=== PATIENT | female | born 1955 | race African-American/Black ===

== ENCOUNTER 2018-11-19 11:31 | Inpatient (IN) | payer MEDICAID ==
[~2018-11-19] VITALS: Ht 162.6 cm; Wt 48.5 kg
[2018-11-19 12:26] LABS: CHLORIDE 100 mEq/L (98-107)
[2018-11-19 12:32] LABS: BASOPHILS % 0.9 % (0.0-2.0); EOSINOPHILS % 4.5 % (0.0-5.0); LYMPHOCYTES % 7.8 % (20.0-50.0); MEAN CORPUSCULAR HEMOGLOBIN 28.2 pg (28.0-32.0); MEAN CORPUSCULAR VOLUME 87.1 fL (81.0-99.0); MEAN PLATELET VOLUME 8.1 fl (7.4-10.4); MONOCYTES % 4.9 % (2.0-8.0); NEUTROPHILS % 81.9 % (40.0-76.0); PLATELET 185 x1000/uL (130-400); RED BLOOD CELL COUNT 2.35 mill/uL (4.2-5.4); RED CELL DISTRIBUTION WIDTH 16.6 % (11.6-14.6)
[2018-11-19 12:33] LABS: HEMATOCRIT. 20.5 % (36.0-48.0); HEMOGLOBIN. 6.6 g/dL (12.0-16.0)
[2018-11-19] MEDS ORDERED: HYDROCODONE/ACETAMINOPHEN 5/325MG TABLET PO ONE (16:00)
[2018-11-19] MEDS ORDERED: ONDANSETRON HCL 4MG/2ML INJ IV PRN (16:15)
[2018-11-19] MEDS ORDERED: ZOLPIDEM TARTRATE 5MG TABLET PO PRN (16:15)
[2018-11-19] MEDS ORDERED: IPRATROPIUM/ALBUTEROL 0.5-3(2.5)MG/3ML NEB HHN PRN (16:15)
[2018-11-19] MEDS ORDERED: DIPHENHYDRAMINE 25MG CAPSULE PO ONE (17:00)
[2018-11-19] MEDS ORDERED: TRAM50TA3 PO (23:05)
[2018-11-19] MEDS ORDERED: NIFE60TA64 PO (23:05)
[2018-11-19] MEDS ORDERED: FERR325T6 PO (23:05)
[2018-11-19] MEDS ORDERED: HYDR100T26 PO (23:05)
[2018-11-19] MEDS ORDERED: CARV12.545 PO (23:05)
[2018-11-19] MEDS ORDERED: DIPH25CA83 PO (23:05)
[2018-11-19] MEDS ORDERED: HYDR-4001 PO (23:05)
[2018-11-19] MEDS ORDERED: NITR0.4T SL (23:05)
[2018-11-19] MEDS ORDERED: ACET-2853 PO (23:05)
[2018-11-19] MEDS ORDERED: CLON0.2T PO (23:05)
[2018-11-19] MEDS ORDERED: NEPVIT PO (23:05)
[2018-11-19] MEDS ORDERED: ISOS40TA17 PO (23:05)
[2018-11-19] MEDS ORDERED: ATOR40TA70 PO (23:05)
[2018-11-19] MEDS ORDERED: PROT40 PO (23:05)
[2018-11-19] MEDS: DIPHENHYDRAMINE 50MG/ML VIAL IV PRN (23:18)
[2018-11-20] VITALS (7 sets, daily range): BP systolic 142–192; BP diastolic 79–114
[2018-11-20] MEDS ORDERED: ZOLPIDEM TARTRATE 5MG TABLET PO PRN (00:15)
[2018-11-20] MEDS: CLONIDINE 0.1MG TABLET PO PRN ×2 (04:25→09:21)
[2018-11-20] MEDS: ENOXAPARIN 30MG/0.3ML SYR SUBCUT SCH (09:00)
[2018-11-20] MEDS: DIPHENHYDRAMINE 50MG/ML VIAL IV PRN (09:38)
[2018-11-20 11:42] LABS: CHLORIDE 103 mEq/L (98-107)
[2018-11-20 11:46] LABS: BASOPHILS % 0.6 % (0.0-2.0); EOSINOPHILS % 4.7 % (0.0-5.0); HEMATOCRIT. 23.4 % (36.0-48.0); HEMOGLOBIN. 7.8 g/dL (12.0-16.0); LYMPHOCYTES % 9.5 % (20.0-50.0); MEAN CORPUSCULAR HEMOGLOBIN 29.2 pg (28.0-32.0); MEAN CORPUSCULAR VOLUME 87.7 fL (81.0-99.0); MEAN PLATELET VOLUME 7.4 fl (7.4-10.4); MONOCYTES % 4.7 % (2.0-8.0); NEUTROPHILS % 80.5 % (40.0-76.0); PLATELET 178 x1000/uL (130-400); RED BLOOD CELL COUNT 2.67 mill/uL (4.2-5.4); RED CELL DISTRIBUTION WIDTH 15.9 % (11.6-14.6)
[2018-11-20 11:48] LABS: PHOSPHORUS 4.3 mg/dL (2.5-4.9)
[2018-11-20] MEDS: LOSARTAN POTASSIUM 100 MG TABLET PO SCH (14:18)
[2018-11-20] MEDS: NIFEDIPINE XL 60MG TAB PO SCH (20:51)
[2018-11-21] VITALS (8 sets, daily range): BP systolic 129–179; BP diastolic 72–103
[2018-11-21] MEDS: DIPHENHYDRAMINE 50MG/ML VIAL IV PRN ×3 (00:11→20:24)
[2018-11-21] MEDS: HYDROCODONE/ACETAMINOPHEN 5/325MG TABLET PO PRN ×3 (02:28→23:01)
[2018-11-21 05:59] LABS: BASOPHILS % 0.8 % (0.0-2.0); EOSINOPHILS % 5.7 % (0.0-5.0); HEMATOCRIT. 24.7 % (36.0-48.0); HEMOGLOBIN. 8.3 g/dL (12.0-16.0); LYMPHOCYTES % 11.4 % (20.0-50.0); MEAN CORPUSCULAR HEMOGLOBIN 28.9 pg (28.0-32.0); MEAN CORPUSCULAR VOLUME 86.5 fL (81.0-99.0); MEAN PLATELET VOLUME 7.3 fl (7.4-10.4); MONOCYTES % 4.8 % (2.0-8.0); NEUTROPHILS % 77.3 % (40.0-76.0); PLATELET 207 x1000/uL (130-400); RED BLOOD CELL COUNT 2.86 mill/uL (4.2-5.4); RED CELL DISTRIBUTION WIDTH 15.9 % (11.6-14.6)
[2018-11-21 06:12] LABS: CHLORIDE 101 mEq/L (98-107)
[2018-11-21 06:19] LABS: PHOSPHORUS 4.9 mg/dL (2.5-4.9)
[2018-11-21] MEDS: LOSARTAN POTASSIUM 100 MG TABLET PO SCH (08:47)
[2018-11-21] MEDS: NIFEDIPINE XL 60MG TAB PO SCH ×2 (08:47→20:24)
[2018-11-21] MEDS: ENOXAPARIN 30MG/0.3ML SYR SUBCUT SCH (08:58)
[2018-11-22 00:20] VITALS: BP 151/101
[2018-11-22 00:25] VITALS: BP 153/96
[2018-11-22 04:00] VITALS: BP 187/108
[2018-11-22] MEDS: CLONIDINE 0.1MG TABLET PO PRN ×3 (05:47→23:18)
[2018-11-22] MEDS: HYDROCODONE/ACETAMINOPHEN 5/325MG TABLET PO PRN (05:47)
[2018-11-22 07:14] LABS: BASOPHILS % 0.5 % (0.0-2.0); EOSINOPHILS % 6.3 % (0.0-5.0); HEMATOCRIT. 25.5 % (36.0-48.0); HEMOGLOBIN. 8.5 g/dL (12.0-16.0); LYMPHOCYTES % 12.8 % (20.0-50.0); MEAN CORPUSCULAR HEMOGLOBIN 28.9 pg (28.0-32.0); MEAN CORPUSCULAR VOLUME 87.2 fL (81.0-99.0); MONOCYTES % 7.8 % (2.0-8.0); NEUTROPHILS % 72.6 % (40.0-76.0); PLATELET 199 x1000/uL (130-400); RED BLOOD CELL COUNT 2.93 mill/uL (4.2-5.4); RED CELL DISTRIBUTION WIDTH 16.2 % (11.6-14.6)
[2018-11-22 08:00] VITALS: BP 167/101
[2018-11-22 08:00] LABS: PHOSPHORUS 4.6 mg/dL (2.5-4.9)
[2018-11-22] MEDS: LOSARTAN POTASSIUM 100 MG TABLET PO SCH (08:24)
[2018-11-22] MEDS: NIFEDIPINE XL 60MG TAB PO SCH ×2 (08:24→21:10)
[2018-11-22] MEDS: ENOXAPARIN 30MG/0.3ML SYR SUBCUT SCH (08:24)
[2018-11-22] MEDS: DIPHENHYDRAMINE 50MG/ML VIAL IV PRN ×2 (09:44→21:11)
[2018-11-22 12:00] VITALS: BP 163/92
[2018-11-22 16:00] VITALS: BP 160/94
[2018-11-23 08:48] VITALS: BP 146/87
[2018-11-23] MEDS: NIFEDIPINE XL 60MG TAB PO SCH ×2 (09:06→22:46)
[2018-11-23] MEDS: LOSARTAN POTASSIUM 100 MG TABLET PO SCH (09:07)
[2018-11-23] MEDS: ENOXAPARIN 30MG/0.3ML SYR SUBCUT SCH (09:07)
[2018-11-23] MEDS: DIPHENHYDRAMINE 50MG/ML VIAL IV PRN ×2 (09:07→22:47)
[2018-11-23 12:29] VITALS: BP 161/92
[2018-11-23 16:16] VITALS: BP 163/92
[2018-11-24] MEDS: HYDROCODONE/ACETAMINOPHEN 5/325MG TABLET PO PRN ×2 (00:58→21:00)
[2018-11-24] MEDS: CLONIDINE 0.1MG TABLET PO PRN ×2 (00:59→06:52)
[2018-11-24 07:29] LABS: BASOPHILS % 0.8 % (0.0-2.0); EOSINOPHILS % 6.4 % (0.0-5.0); HEMATOCRIT. 25.5 % (36.0-48.0); HEMOGLOBIN. 8.4 g/dL (12.0-16.0); LYMPHOCYTES % 13.5 % (20.0-50.0); MEAN CORPUSCULAR HEMOGLOBIN 28.7 pg (28.0-32.0); MEAN PLATELET VOLUME 7.3 fl (7.4-10.4); MONOCYTES % 7.9 % (2.0-8.0); NEUTROPHILS % 71.4 % (40.0-76.0); PLATELET 169 x1000/uL (130-400); RED BLOOD CELL COUNT 2.93 mill/uL (4.2-5.4); RED CELL DISTRIBUTION WIDTH 16.3 % (11.6-14.6)
[2018-11-24] MEDS ORDERED: CARVEDILOL 6.25 MG TABLET PO SCH (10:30)
[2018-11-24] MEDS: LOSARTAN POTASSIUM 100 MG TABLET PO SCH (10:53)
[2018-11-24] MEDS: NIFEDIPINE XL 60MG TAB PO SCH ×2 (10:54→20:59)
[2018-11-24] MEDS: ENOXAPARIN 30MG/0.3ML SYR SUBCUT SCH (10:55)
[2018-11-24] MEDS: IRON SUCROSE COMPLEX 100 MG/5 ML ML IV SCH (17:24)
[2018-11-24] MEDS: DIPHENHYDRAMINE 50MG/ML VIAL IV PRN (17:24)
[2018-11-24] MEDS ORDERED: HEPARIN SODIUM 1,000 UNIT/1ML VIAL IV SCH (19:45)
[2018-11-24 20:00] VITALS: BP 151/100
[2018-11-24] MEDS: ATORVASTATIN CALCIUM 20MG TABLET PO SCH (20:59)
[2018-11-24] MEDS ORDERED: EPOETIN ALFA 10000UNITS/ML VIAL SUBCUT NR (21:00)
[2018-11-25] VITALS: BP 161/113
[2018-11-25] MEDS: CARVEDILOL 12.5MG TABLET PO SCH ×3 (00:36→21:52)
[2018-11-25] MEDS ORDERED: ZOLPIDEM TARTRATE 5MG TABLET PO PRN (01:00)
[2018-11-25 04:00] VITALS: BP 154/99
[2018-11-25 07:18] LABS: BASOPHILS % 1.1 % (0.0-2.0); EOSINOPHILS % 6.3 % (0.0-5.0); HEMATOCRIT. 28.6 % (36.0-48.0); HEMOGLOBIN. 9.5 g/dL (12.0-16.0); LYMPHOCYTES % 13.4 % (20.0-50.0); MEAN CORPUSCULAR HEMOGLOBIN 29.2 pg (28.0-32.0); MEAN CORPUSCULAR VOLUME 87.5 fL (81.0-99.0); MEAN PLATELET VOLUME 7.3 fl (7.4-10.4); MONOCYTES % 9.9 % (2.0-8.0); NEUTROPHILS % 69.3 % (40.0-76.0); PLATELET 162 x1000/uL (130-400); RED BLOOD CELL COUNT 3.27 mill/uL (4.2-5.4); RED CELL DISTRIBUTION WIDTH 16.3 % (11.6-14.6)
[2018-11-25] MEDS: LOSARTAN POTASSIUM 100 MG TABLET PO SCH (10:58)
[2018-11-25] MEDS: NIFEDIPINE XL 60MG TAB PO SCH ×2 (10:59→21:51)
[2018-11-25] MEDS: ENOXAPARIN 30MG/0.3ML SYR SUBCUT SCH (11:00)
[2018-11-25 12:00] VITALS: BP 137/86
[2018-11-25] MEDS: IRON SUCROSE COMPLEX 100 MG/5 ML ML IV SCH (13:47)
[2018-11-25] MEDS: CLONIDINE 0.2MG TABLET PO SCH ×2 (14:00→21:52)
[2018-11-25 16:09] VITALS: BP 164/92
[2018-11-25 20:41] VITALS: BP 163/102
[2018-11-25] MEDS: ATORVASTATIN CALCIUM 20MG TABLET PO SCH (21:51)
[2018-11-25] MEDS: DIPHENHYDRAMINE 50MG/ML VIAL IV PRN (21:51)
[2018-11-25] MEDS: ACETAMINOPHEN 325MG TABLET PO PRN (21:56)
[2018-11-26 00:55] VITALS: BP 137/93
[2018-11-26 04:00] VITALS: BP 134/87
[2018-11-26] MEDS: CLONIDINE 0.2MG TABLET PO SCH ×3 (06:00→22:00)
[2018-11-26 07:50] LABS: BASOPHILS % 0.8 % (0.0-2.0); EOSINOPHILS % 6.3 % (0.0-5.0); HEMATOCRIT. 28.1 % (36.0-48.0); HEMOGLOBIN. 9.4 g/dL (12.0-16.0); LYMPHOCYTES % 18.4 % (20.0-50.0); MEAN CORPUSCULAR HEMOGLOBIN 29.3 pg (28.0-32.0); MEAN CORPUSCULAR VOLUME 87.9 fL (81.0-99.0); MEAN PLATELET VOLUME 7.8 fl (7.4-10.4); MONOCYTES % 10.8 % (2.0-8.0); NEUTROPHILS % 63.7 % (40.0-76.0); PLATELET 155 x1000/uL (130-400); RED BLOOD CELL COUNT 3.19 mill/uL (4.2-5.4); RED CELL DISTRIBUTION WIDTH 16.2 % (11.6-14.6)
[2018-11-26 08:00] VITALS: BP 150/90
[2018-11-26] MEDS: IRON SUCROSE COMPLEX 100 MG/5 ML ML IV SCH (08:54)
[2018-11-26] MEDS: LOSARTAN POTASSIUM 100 MG TABLET PO SCH (08:55)
[2018-11-26] MEDS: NIFEDIPINE XL 60MG TAB PO SCH ×2 (08:55→21:00)
[2018-11-26] MEDS: CARVEDILOL 12.5MG TABLET PO SCH ×2 (08:57→21:00)
[2018-11-26] MEDS ORDERED: HYDRALAZINE HCL 25MG TABLET PO SCH (09:00)
[2018-11-26] MEDS ORDERED: BUPIVACAINE HCL/PF 0.5% (5MG/ML) 10ML ONE (10:01)
[2018-11-26] MEDS ORDERED: BACITRACIN 15GM TUBE TOP ONE (10:01)
[2018-11-26] MEDS ORDERED: HEPARIN SODIUM 1,000 UNIT/1ML VIAL IV ONE (10:01)
[2018-11-26] MEDS ORDERED: THROMBIN (BOVINE) 5000 UNITS/VIAL TOP ONE (10:01)
[2018-11-26] MEDS ORDERED: LIDOCAINE HCL 1% 20ML VIAL (Pyxis) INJ ONE (10:01)
[2018-11-26] MEDS ORDERED: BACITRACIN 50,000 UNITS/VIAL ONE (10:02)
[2018-11-26] MEDS ORDERED: NORMAL SALINE 0.9% 10 ML SYR ONE (10:02)
[2018-11-26 12:00] VITALS: BP 162/98
[2018-11-26] MEDS ORDERED: DEXTROSE 50% WATER 50ML SYRINGE IV NR (15:00)
[2018-11-26] MEDS ORDERED: INSULIN REGULAR (HUMULIN R) UD 100 UNITS/ML SYR IV NR (15:00)
[2018-11-26] MEDS ORDERED: SODIUM POLYSTYRENE SULFONATE 15 G/60 ML BOT PO NR (15:00)
[2018-11-26 16:00] VITALS: BP 159/98
[2018-11-26] MEDS: ASPIRIN 81MG TABLET PO SCH (18:39)
[2018-11-26] MEDS: CLONIDINE 0.1MG TABLET PO PRN ×3 (18:40→18:42)
[2018-11-26 20:00] VITALS: BP 165/95
[2018-11-26] MEDS: DIPHENHYDRAMINE 50MG/ML VIAL IV PRN (20:54)
[2018-11-26] MEDS ORDERED: EPOETIN ALFA 10000UNITS/ML VIAL SUBCUT NR (21:00)
[2018-11-26] MEDS: HYDRALAZINE HCL 100MG TABLET PO SCH (21:00)
[2018-11-26] MEDS: ATORVASTATIN CALCIUM 20MG TABLET PO SCH (22:46)
[2018-11-26] MEDS ORDERED: EPOETIN ALFA 4000UNITS/ML VIAL SUBCUT ONE (23:30)
[2018-11-27] VITALS: BP 185/118
[2018-11-27] MEDS: CLONIDINE 0.2MG TABLET PO SCH ×4 (00:31→22:00)
[2018-11-27 04:00] VITALS: BP 154/96
[2018-11-27 07:14] LABS: HEMATOCRIT. 27.9 % (36.0-48.0); HEMOGLOBIN. 9.4 g/dL (12.0-16.0); MEAN CORPUSCULAR HEMOGLOBIN 29.3 pg (28.0-32.0); MEAN CORPUSCULAR VOLUME 86.5 fL (81.0-99.0); MEAN PLATELET VOLUME 7.6 fl (7.4-10.4); PLATELET 158 x1000/uL (130-400); RED BLOOD CELL COUNT 3.22 mill/uL (4.2-5.4); RED CELL DISTRIBUTION WIDTH 16.2 % (11.6-14.6)
[2018-11-27 08:00] VITALS: BP 162/94
[2018-11-27] MEDS: ASPIRIN 81MG TABLET PO SCH (09:26)
[2018-11-27] MEDS: LOSARTAN POTASSIUM 100 MG TABLET PO SCH (09:26)
[2018-11-27] MEDS: CARVEDILOL 12.5MG TABLET PO SCH ×2 (09:26→21:00)
[2018-11-27] MEDS: NIFEDIPINE XL 60MG TAB PO SCH ×2 (09:26→21:00)
[2018-11-27] MEDS: HYDRALAZINE HCL 100MG TABLET PO SCH ×2 (09:27→21:56)
[2018-11-27 11:24] LABS: NUCLEATED RED BLOOD CELLS 1 /100 WBC; PLATELET ESTIMATE NORMAL
[2018-11-27 11:47] VITALS: BP 131/89
[2018-11-27 16:00] VITALS: BP 95/61
[2018-11-27 20:00] VITALS: BP 102/67
[2018-11-27] MEDS: ATORVASTATIN CALCIUM 20MG TABLET PO SCH (21:57)
[2018-11-27] MEDS: ACETAMINOPHEN 325MG TABLET PO PRN (21:58)
[2018-11-27] MEDS ORDERED: MAGNESIUM/ALUMINUM HYDROXIDE/SIMETHICONE 30ML UDC PO PRN (22:45)
[2018-11-27] MEDS: DIPHENHYDRAMINE 25MG CAPSULE PO PRN (22:55)
[2018-11-28] VITALS: BP 101/67
[2018-11-28 04:00] VITALS: BP 127/81
[2018-11-28] MEDS: CLONIDINE 0.2MG TABLET PO SCH ×3 (06:36→23:57)
[2018-11-28 06:50] LABS: BASOPHILS % 0.7 % (0.0-2.0); EOSINOPHILS % 7.2 % (0.0-5.0); HEMATOCRIT. 25.8 % (36.0-48.0); HEMOGLOBIN. 8.8 g/dL (12.0-16.0); LYMPHOCYTES % 19.3 % (20.0-50.0); MEAN CORPUSCULAR HEMOGLOBIN 29.6 pg (28.0-32.0); MEAN CORPUSCULAR VOLUME 86.5 fL (81.0-99.0); MEAN PLATELET VOLUME 8.1 fl (7.4-10.4); MONOCYTES % 12.7 % (2.0-8.0); NEUTROPHILS % 60.1 % (40.0-76.0); PLATELET 163 x1000/uL (130-400); RED BLOOD CELL COUNT 2.99 mill/uL (4.2-5.4); RED CELL DISTRIBUTION WIDTH 16.3 % (11.6-14.6)
[2018-11-28] MEDS: HYDRALAZINE HCL 100MG TABLET PO SCH ×2 (08:12→21:37)
[2018-11-28] MEDS: LOSARTAN POTASSIUM 100 MG TABLET PO SCH (08:12)
[2018-11-28] MEDS: CARVEDILOL 12.5MG TABLET PO SCH ×2 (08:12→21:36)
[2018-11-28] MEDS: NIFEDIPINE XL 60MG TAB PO SCH ×2 (08:13→21:36)
[2018-11-28] MEDS: ASPIRIN 81MG TABLET PO SCH (08:13)
[2018-11-28 08:49] VITALS: BP 145/70
[2018-11-28 12:32] VITALS: BP 114/76
[2018-11-28 16:09] VITALS: BP 117/79
[2018-11-28 20:20] VITALS: BP 113/74
[2018-11-28] MEDS: ACETAMINOPHEN 325MG TABLET PO PRN (21:36)
[2018-11-28] MEDS: DIPHENHYDRAMINE 25MG CAPSULE PO PRN (21:36)
[2018-11-28] MEDS: ATORVASTATIN CALCIUM 20MG TABLET PO SCH (21:36)
[2018-11-28] MEDS ORDERED: EPOETIN ALFA 10000UNITS/ML VIAL SUBCUT NR (22:30)
[2018-11-29 00:14] VITALS: BP 139/73
[2018-11-29 04:00] VITALS: BP 113/74
[2018-11-29] MEDS: CLONIDINE 0.2MG TABLET PO SCH ×2 (06:00→14:00)
[2018-11-29 07:54] LABS: HEMATOCRIT. 26.2 % (36.0-48.0); HEMOGLOBIN. 8.6 g/dL (12.0-16.0); MEAN CORPUSCULAR HEMOGLOBIN 29.3 pg (28.0-32.0); MEAN CORPUSCULAR VOLUME 88.9 fL (81.0-99.0); MEAN PLATELET VOLUME 8.1 fl (7.4-10.4); PLATELET 194 x1000/uL (130-400); RED BLOOD CELL COUNT 2.94 mill/uL (4.2-5.4); RED CELL DISTRIBUTION WIDTH 16.2 % (11.6-14.6)
[2018-11-29 08:13] VITALS: BP 125/81
[2018-11-29] MEDS: LOSARTAN POTASSIUM 100 MG TABLET PO SCH (09:28)
[2018-11-29] MEDS: HYDRALAZINE HCL 100MG TABLET PO SCH (09:28)
[2018-11-29] MEDS: NIFEDIPINE XL 60MG TAB PO SCH (09:28)
[2018-11-29] MEDS: ASPIRIN 81MG TABLET PO SCH (09:28)
[2018-11-29] MEDS: CARVEDILOL 12.5MG TABLET PO SCH (09:28)
[2018-11-29 11:41] LABS: PLATELET ESTIMATE NORMAL
[2018-11-29] MEDS ORDERED: HYDR100T26 PO (11:51)
[2018-11-29] MEDS ORDERED: LOSA100T3 PO (11:51)
[2018-11-29] MEDS ORDERED: CLON0.2T12 PO (11:51)
[2018-11-29] MEDS ORDERED: NIFE60TA64 PO (11:51)
[2018-11-29 12:12] VITALS: BP 117/68
[2018-11-29] MEDS: DIPHENHYDRAMINE 25MG CAPSULE PO PRN (12:58)
[2018-11-29] MEDS ORDERED: HEPARIN SODIUM 1,000 UNIT/1ML VIAL IV NR (14:15)
== END 2018-11-29 15:51 | disposition left against medical advice (07) | DRG 133 ==
LOC: ER 11:31 → 6WST 15:16 → EDBEDREQ 15:18 → EDBEDREQTM 15:18 → EDBEDREQ 15:19 → EDBEDREQTM 15:19 → ENRESERV 18:59
PROVIDERS: ADMIT Internal Medicine; ATTEND Internal Medicine
PROC: 30233N1 Transfusion of Nonautologous Red Blood Cells into Peripheral Vein, Percutaneous Approach (ICD-10-PCS; principal; 2018-11-19)
PROC: 5A1D70Z Performance of Urinary Filtration, Intermittent, Less than 6 Hours Per Day (ICD-10-PCS; 2018-11-19)
PROC: 5A1D70Z Performance of Urinary Filtration, Intermittent, Less than 6 Hours Per Day (ICD-10-PCS; 2018-11-20)
PROC: 5A1D70Z Performance of Urinary Filtration, Intermittent, Less than 6 Hours Per Day (ICD-10-PCS; 2018-11-23)
PROC: 5A1D70Z Performance of Urinary Filtration, Intermittent, Less than 6 Hours Per Day (ICD-10-PCS; 2018-11-26)
PROC: 5A1D70Z Performance of Urinary Filtration, Intermittent, Less than 6 Hours Per Day (ICD-10-PCS; 2018-11-28)
PROC: 5A1D70Z Performance of Urinary Filtration, Intermittent, Less than 6 Hours Per Day (ICD-10-PCS; 2018-11-29)
DX: J96.00 Acute respiratory failure, unspecified whether with hypoxia or hypercapnia (principal); I13.2 Hypertensive heart and chronic kidney disease with heart failure and with stage 5 chronic kidney disease, or end stage renal disease; I24.8 Other forms of acute ischemic heart disease; E46 Unspecified protein-calorie malnutrition; E87.1 Hypo-osmolality and hyponatremia; E87.5 Hyperkalemia; N18.6 End stage renal disease; I42.9 Cardiomyopathy, unspecified; E78.5 Hyperlipidemia, unspecified; I48.92 Unspecified atrial flutter; F10.20 Alcohol dependence, uncomplicated; I50.23 Acute on chronic systolic (congestive) heart failure; D64.9 Anemia, unspecified; J44.1 Chronic obstructive pulmonary disease with (acute) exacerbation; Z53.29 Procedure and treatment not carried out because of patient's decision for other reasons; N63.0 Unspecified lump in unspecified breast; Z99.2 Dependence on renal dialysis; Z86.718 Personal history of other venous thrombosis and embolism; Z87.891 Personal history of nicotine dependence; Z88.0 Allergy status to penicillin; Z88.5 Allergy status to narcotic agent; Z68.1 Body mass index [BMI] 19.9 or less, adult
CPT/HCPCS: 36415; 71045; 80048; 80061; 82728; 82962; 83036; 83540; 83550; 83735; 84100; 84132; 84439; 84443; 84484; 85018; 86850; 86900; 86920; 93005; 93306; 93970; 99291; C1893; J0885; J1200; J1644; J1650; J1815; J2405; J3490; P9016; Q0163